=== PATIENT | female | born 1990 | race African-American/Black ===

== ENCOUNTER 2020-11-01 01:34 | Observation (INO) | payer MEDICAID ==
[~2020-11-01] VITALS: Ht 165.1 cm; Wt 83.5 kg
[2020-11-01] MEDS ORDERED: PREN1COM12 PO (01:43)
== END 2020-11-01 02:50 | disposition home or self-care (01) ==
LOC: 8 EST LDRP 01:34
PROVIDERS: ADMIT Specialist; ATTEND Specialist
DX: O26.893 Other specified pregnancy related conditions, third trimester (principal); R10.9 Unspecified abdominal pain; Z3A.37 37 weeks gestation of pregnancy
CPT/HCPCS: 59025; G0378; 99281; G0379